=== PATIENT | male | born 1995 | race African-American/Black ===

== ENCOUNTER 2018-08-10 19:00 | Emergency (ER) | payer SELFPAY ==
[2018-08-10 19:26] LABS: HEMOGLOBIN 14.8 g/dL (13.0-17.5); RED BLOOD COUNT 4.69 x10^6/uL (4.30-5.70); WHITE BLOOD COUNT 15.9 x10^3/uL (4.0-11.0)
[2018-08-10 19:27] LABS: BASO # 0.2 x10^3/uL (0.0-0.2); BASO % 1 % (0-3); EOS # 0.2 x10^3/uL (0.0-0.7); EOS % 1 % (0-3); HEMATOCRIT 45.8 % (39.0-53.0); LYMPH # 6.3 x10^3/uL (1.0-4.8); LYMPH % 40 % (24-48); MEAN CORPUSCULAR HEMOGLOBIN 32 pg (25-35); MEAN CORPUSCULAR HGB CONC 32 g/dL (31-37); MEAN CORPUSCULAR VOLUME 98 fL (79-100); MONO # 1.1 x10^3/uL (0.0-1.1); MONO % 7 % (0-9); NEUT # 8.2 x10^3uL (1.8-7.7); NEUT % 52 % (31-73); PLATELET COUNT 169 x10^3/uL (140-400); RED CELL DISTRIBUTION WIDTH 13.2 % (11.5-14.5)
[2018-08-10] MEDS ORDERED: IV NORMAL SALINE 1000ML BAG 1,000 ML IV ONE ×2 (19:30)
[2018-08-10 19:31] LABS: PROTHROMBIN TIME PATIENT 15.7 SEC (11.7-14.0)
[2018-08-10 19:34] LABS: CALCIUM 8.9 mg/dL (8.5-10.1); CREATININE 1.5 mg/dL (0.7-1.3); POTASSIUM 3.1 mmol/L (3.5-5.1)
[2018-08-10 19:38] LABS: GFR 71.5
[2018-08-10 19:40] LABS: ALBUMIN 4.5 g/dL (3.4-5.0); ALBUMIN/GLOBULIN RATIO 1.1 (1.0-1.7); TOTAL BILIRUBIN 1.2 mg/dL (0.2-1.0); TOTAL PROTEIN 8.6 g/dL (6.4-8.2)
[2018-08-10 19:49] LABS: PLT ESTIMATE ADEQUATE (ADEQUATE)
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
== END 2018-08-10 19:30 | disposition short-term general hospital (02) ==
LOC: ER 19:00
DX: S41.002A Unspecified open wound of left shoulder, initial encounter (principal); S41.001A Unspecified open wound of right shoulder, initial encounter; S31.104A Unspecified open wound of abdominal wall, left lower quadrant without penetration into peritoneal cavity, initial encounter; S21.209A Unspecified open wound of unspecified back wall of thorax without penetration into thoracic cavity, initial encounter; S31.829A Unspecified open wound of left buttock, initial encounter; R06.02 Shortness of breath; R00.0 Tachycardia, unspecified; W34.09XA Accidental discharge from other specified firearms, initial encounter; Y93.89 Activity, other specified; Y92.89 Other specified places as the place of occurrence of the external cause; Y99.8 Other external cause status
CPT/HCPCS: 36415; 36430; 71045; 72170; 80053; 83605; 83690; 85025; 85610; 85730; 86850; 86900; 86901; 86920; 94760; 99291; G0480; J7030; P9016; 99285-25